=== PATIENT | female | born 1935 | race Caucasian/White ===

== ENCOUNTER 2022-01-12 13:04 | Inpatient (IN) | payer MEDICARE, BC ==
[~2022-01-12] VITALS: Ht 167.6 cm; Wt 41.2 kg
[2022-01-12 15:05] VITALS: BP 187/78; PULSE 77; TEMP 98
[2022-01-12 20:14] VITALS: BP 162/97; PULSE 85; TEMP 97.9
[2022-01-13] VITALS (12 sets, daily range): BP systolic 94–177; BP diastolic 47–847; PULSE 56–107; TEMP 97.4–98.5
--- NOTE | 2022-01-13 06:35 | NUR ---
PATIENT RESTED QUIETLY THIS SHIFT AND DID NOT ATTEMPT TO GET OUT OF BED. PATIENT RECEIVED TWO DOSES OF PRN MORPHINE AND PATIENT REPORTED PAIN BETTER. PATIENT PLEASANTLY CONFUSED AND NEEDS REMINDERS THAT HER HIP IS BROKEN AND SHE'S HAVING SURGERY FOR IT.
[2022-01-13 06:38] LABS: BASO % 0.3 % (0.0-2.0); EOS % 0.3 % (0.0-4.0); GRAN # 6.8 K/mm3 (1.4-6.5); GRAN % 77.5 % (42.2-75.2); LYMPH # 0.9 K/mm3 (1.2-3.4); LYMPH % 10.1 % (20.0-51.0); MEAN CELL VOLUME 86 fl (80.0-100.0); MEAN CORPUSCULAR HEMOGLOBIN 29 pg (27-31); MEAN CORPUSCULAR HGB CONC 33 g/dl (33.0-37.0); MEAN PLATELET VOLUME 9.1 fl (7.4-10.4); MONO % 11.5 % (1.7-9.3); PLATELET COUNT 174 K/mm3 (130-400)
[2022-01-13 06:44] LABS: INR 1.2 (0.8-3.0); PROTHROMBIN TIME 13.5 SECONDS (9.7-12.8)
[2022-01-13 06:50] LABS: HEMATOCRIT 35.9 % (37.0-47.0)
[2022-01-13 06:54] LABS: CREATININE, serum 0.81 mg/dL (0.57-1.11); MAGNESIUM 1.9 mg/dL (1.6-2.6); POTASSIUM 4.1 mmol/L (3.5-4.5)
[2022-01-13 07:02] LABS: CALCIUM 8.9 mg/dL (8.4-10.2)
[2022-01-13 07:59] LABS: COLLECTION METHOD CATHETER
[2022-01-13 08:09] LABS: MUCOUS Present (NOT PRESENT); SQUAMOUS EPITHELIAL None Seen /hpf (0-10); URINE BACTERIA None Seen /hpf (NONE SEEN)
[2022-01-13 08:10] LABS: URINE APPEARANCE Cloudy (CLEAR/HAZY); URINE COLOR Yellow (YELLOW); URINE PROTEIN(semi-quant) Negative (NEGATIVE)
[2022-01-13 08:11] LABS: URINE BLOOD 1+ (NEGATIVE); URINE GLUCOSE Negative (NEGATIVE); URINE KETONE Negative (NEGATIVE); URINE NITRATE Negative (NEGATIVE); URINE UROBILINOGEN 0.2 E.U/dL (0.2-1.0)
--- NOTE | 2022-01-13 11:16 | NUR ---
PATIENT OFF OF FLOOR FOR SURGERY
--- NOTE | 2022-01-13 11:17 | NUR ---
PATIENT ALERT TO SELF, NOT SITUATION. PATIENT REPORTS PAIN 5/10, REQUESTS PAIN MEDICATION. IV TO LEFT AC WITH 1/2NS RUNNING AT 75ML/HOUR. CAROL TO LAYO. SCDS BILAT. PATIENT RESTING IN BED WITH CALL LIGHT NEAR.
--- NOTE | 2022-01-13 15:07 | NUR ---
TRICIA met with pt, Michael cunningham present to complete intake. Pt lives at home alone in [place], [place] Pt is independent on ALDs and does not use any DME prior to admit. Pt PCP is Taurus Mendez and gets medications from [facility] in [place]. Pt has DPO[facility] and is in [facility] @ [phone]. Pt would like referral to [facility] and would be open to private transportation with wheelchair van. Génesis-michael is a RN will be proving the help. No other needs at this time. DC: PIEDAD
--- NOTE | 2022-01-13 15:38 | NUR ---
TRICIA faxed over referral paperwork to [facility] in [place] to Kiya @ [phone]. @ 3:39 pm
--- NOTE | 2022-01-13 16:21 | NUR ---
PATIENT TO FLOOR FROM SURGERY. SITE CDI. POST OPS BEGAN. PATIENT REQUESTS ZOFRAN FOR NAUSEA.
--- NOTE | 2022-01-13 19:56 | NUR ---
SHIFT REPORT FROM DAY SHIFT NURSE. PATIENT IN BED ON ROOM ENTRY. EYES CLOSED BUT AWAKENS EASILY. HS MEDS PER EMAR. C/O MILD PAIN TO R LEG 5/10 BUT DENIES NEED FOR PAIN MEDICATION AT THIS TIME. R HIP AQUACELL CDI. MEDINA TO DD WITH CLEAR YELLOW URINE. IVF TO L AC WITHOUT ISSUE. DENIES ADDITIONAL NEEDS, REQUESTS TO GO BACK TO SLEEP. CALL LIGHT IN REACH, BED ALARM ON.
[2022-01-14] VITALS (8 sets, daily range): BP systolic 118–140; BP diastolic 52–70; PULSE 70–98; TEMP 97.3–98.6
[2022-01-14 06:55] LABS: HEMATOCRIT 24.6 % (37.0-47.0)
--- NOTE | 2022-01-14 07:11 | NUR ---
Received shift report from the night nurse.
--- NOTE | 2022-01-14 08:30 | NUR ---
ASSISTED EATING BREAKFAST. WAS POCKETING FOOD IN SIDES OF MOUTH. SAYS "I CAN'T SEEM TO SWALLOW". COULD ONLY TOLERATE 5% OF FOOD, EXHAUSTED AFTERWARDS.
--- NOTE | 2022-01-14 10:06 | NUR ---
Patient laying in bed confused trying to get out of bed. IVF infusing without difficutly. Assessment completed, dressing on right hip intact . Patient denies pain at this time.
--- NOTE | 2022-01-14 15:45 | NUR ---
PATIENT ASSISTED INTO BEDSIDE CHAIR WITH 1-2 ASSIST AND WALKER. PATIENT FOLLOWED VERBAL QUES AND TOLERATED ACTIVITY WELL. CHAIR ALARM INPLACE. SON AT BEDSIDE. CALL LIGHT IN REACH.
--- NOTE | 2022-01-14 16:27 | NUR ---
poultry farmworker met with patient's daughters and son and they advised that Dr Pickett stated he will have an opening at the [facility] Bed tomorrow after 1:00. Génesis, daughter will transport [phone].
--- NOTE | 2022-01-14 17:35 | NUR ---
Patient laying in bed awake. Patient is confused and disoriented. IVF infusing without difficulty. Patient denies pain at this time . Call saba place within reach.
--- NOTE | 2022-01-14 18:18 | NUR ---
Patient laying in bed watching tv. No needs at this time. Dressing on right thigh dry and intact. Ice pack applied to the affected area.
--- NOTE | 2022-01-14 20:20 | NUR ---
SHIFT REPORT FROM DAY SHIFT NURSE. PATIENT IN BED ON ROOM ENTRY. HS MEDS PER EMAR. PATIENT CONTINUES TO BE CONFUSED AND NEED FREQUENT REORINETATION. CONTINUOUSLY SETS OFF BED ALARM ATTEMPTING TO GET OUT OF BED UNASSISTED. PRN SEROQUEL GIVEN. PATIENT SBA TO BATHROOM AND PASSED GAS. DENIES PAIN. CURRENTLY IN BED AT THIS TIME. CALL LIGHT IN REACH, BED ALARM ON.
--- NOTE | 2022-01-14 21:59 | NUR ---
PT CONTINUES TO ATTEMPT TO GET OUT OF BED, ATTEMPTS TO REORIENT PATIENT HAVE BEEN UNSUCCESFUL PT STILL INSISTS ON GETTING OUT OF BED. PT HAS BEEN REPOSITIONED, TOILETING OFFERED, MEDICATION ADMINISTERED AT 2004 PER JUN. WILL CONTINUE TO ATTEMPT TO REORIENT PATIENT. BED ALARM ACTIVE.
--- NOTE | 2022-01-15 00:51 | NUR ---
PATIENT REPEATEDLY ATTEMPTING TO GET OUT OF BED. IS CONFUSED IN SPEECH AND IS HALLUCINATING. NOTIFIED ALLISION LINEMARKER AND ADDITIONAL DOSE OF SEROQUEL ORDERED AND GIVEN.
--- NOTE | 2022-01-15 03:06 | NUR ---
PT STILL CONTINUES TO ATTEMPT TO GET OUT OF BED, PT NOW BECOMING AGITATED WITH STAFF TELLING THEM TO GET OUT OF HER HOUSE. ATTEMPTS MADE TO REORIENT PATIENT. PT STILL INSISTING SHE IS IN HER HOME.
[2022-01-15 03:51] VITALS: BP 138/59; BP 151/61; PULSE 110; PULSE 82; TEMP 97.5; TEMP 98.8
--- NOTE | 2022-01-15 06:44 | NUR ---
bedside shift report received from LING Romero
[2022-01-15 06:56] VITALS: BP 137/61; PULSE 95; TEMP 97.6
--- NOTE | 2022-01-15 08:23 | NUR ---
sitting up in bed eating breakfst, student KITCHEN HELP HANDYMAN assisting her
--- NOTE | 2022-01-15 08:30 | NUR ---
full assessment completed, see intervention for further info, assessment also completed by student EVARISTO
[2022-01-15] MEDS ORDERED: ASPIRIN 32325 MG/TAB PO (09:11)
[2022-01-15] MEDS ORDERED: VITAMIN C500 MG PO (09:12)
[2022-01-15] MEDS ORDERED: OS-CAL 500 + D1 TAB PO (09:12)
[2022-01-15] MEDS ORDERED: ROXICODONE 55 MG/TAB PO (09:12)
[2022-01-15] MEDS ORDERED: TYLENOL 500MG500 MG PO (09:12)
[2022-01-15] MEDS ORDERED: SYNTHROID0.05 MG/TA PO (09:13)
--- NOTE | 2022-01-15 09:15 | NUR ---
physical therapy in to work with patient, assisted her out of bed and into recliner, therapist states patient moves well,
[2022-01-15 09:50] LABS: BASO % 0.2 % (0.0-2.0); GRAN # 11.4 K/mm3 (1.4-6.5); GRAN % 89.4 % (42.2-75.2); HEMATOCRIT 21.2 % (37.0-47.0); HEMOGLOBIN 7.3 g/dl (12.5-16.0); LYMPH # 0.5 K/mm3 (1.2-3.4); LYMPH % 3.8 % (20.0-51.0); MEAN CELL VOLUME 85 fl (80.0-100.0); MEAN CORPUSCULAR HEMOGLOBIN 29 pg (27-31); MEAN CORPUSCULAR HGB CONC 34 g/dl (33.0-37.0); MEAN PLATELET VOLUME 9.9 fl (7.4-10.4); MONO # 0.8 K/mm3 (0.1-0.6); MONO % 6.1 % (1.7-9.3); PLATELET COUNT 146 K/mm3 (130-400); RED BLOOD COUNT 2.51 M/mm3 (4.10-5.30); REDCELL DISTRIBUTION WIDTH-CV 14.1 % (11.5-14.5)
[2022-01-15 10:07] LABS: CALCIUM 8.9 mg/dL (8.4-10.2); CREATININE, serum 1.11 mg/dL (0.57-1.11); POTASSIUM 4.8 mmol/L (3.5-4.5)
--- NOTE | 2022-01-15 10:35 | NUR ---
ambulated in cheung with physical therapy and then back to room and into recliner
[2022-01-15 11:03] VITALS: BP 137/61; PULSE 95; TEMP 97.6
[2022-01-15 11:15] VITALS: BP 123/45; PULSE 92; TEMP 98.1
--- NOTE | 2022-01-15 12:05 | NUR ---
attempted to get out of recliner independently, AUTOMATIC SEAMER in and assisted her with getting dressed for transfer and then back to recliner
--- NOTE | 2022-01-15 13:32 | NUR ---
denies urge to void, encouraged to drink more water
--- NOTE | 2022-01-15 14:44 | NUR ---
assisted out of bed and discharged per WC
--- NOTE | 2022-01-15 14:45 | NUR ---
report called to Ninoska at [facility]
--- NOTE | 2022-01-15 16:29 | NUR ---
Kiya with [facility] accepts patient to swing bed this date. Worker notified son, Aroldo of the above information. Daughter, Génesis is on her way and will transport patient at 2:00pm. Worker faxed orders to [facility].
== END 2022-01-15 14:45 | disposition swing bed (61) | DRG 522 ==
LOC: MEDICAL 13:04 → SURG 14:30
PROVIDERS: Orthopaedic Surgery; Physician Assistant; ADMIT Internal Medicine
PROC: 0SR90JZ Replacement of Right Hip Joint with Synthetic Substitute, Open Approach (ICD-10-PCS; principal; 2022-01-13 12:00)
DX: S72.041A Displaced fracture of base of neck of right femur, initial encounter for closed fracture (principal); F03.90 Unspecified dementia, unspecified severity, without behavioral disturbance, psychotic disturbance, mood disturbance, and anxiety; M81.0 Age-related osteoporosis without current pathological fracture; E03.9 Hypothyroidism, unspecified; W01.0XXA Fall on same level from slipping, tripping and stumbling without subsequent striking against object, initial encounter; E53.8 Deficiency of other specified B group vitamins; N18.31 Chronic kidney disease, stage 3a; J44.9 Chronic obstructive pulmonary disease, unspecified; M19.90 Unspecified osteoarthritis, unspecified site; D64.9 Anemia, unspecified; Z53.29 Procedure and treatment not carried out because of patient's decision for other reasons; Z85.828 Personal history of other malignant neoplasm of skin; Z79.890 Hormone replacement therapy; Y93.89 Activity, other specified; Y92.091 Bathroom in other non-institutional residence as the place of occurrence of the external cause
CPT/HCPCS: A4314; A9284; C1713; C1776; J0690; J1100; J1630; J2250; J2270; J2405; J2704; J3010; J7121